=== PATIENT | female | born 1955 | race Caucasian/White ===

== ENCOUNTER 2017-09-19 16:20 | Emergency (ER) | payer OTHER, BC ==
[2017-09-19 16:26] VITALS: BMI 38.7
[2017-09-19 16:27] VITALS: RESP 18; TEMP 98
[2017-09-19] MEDS ORDERED: Tdap Vaccine 0.5 ml Vial (10-64 yrs) IM ONE ×2 (16:31→16:40)
--- NOTE | 2017-09-19 16:47 | C.PDOC ---
History Of Present Illness 61 year old female presents to the ED complaining of insect bite to the right lower abdomen from 3 days ago. Patient complains of redness, swelling, itching, and pain to palpation. She denies any fever, chills, or any other associated symptoms. She was prompted to visit the ER because she is diabetic and became concerned. Time Seen by Provider: 09/19/17 16:30 Chief Complaint (Nursing): Abnormal Skin Integrity History Per: Patient History/Exam Limitations: no limitations Onset/Duration Of Symptoms: Days Current Symptoms Are (Timing): Still Present Location Of Injury: Right: Abdomen (insect bite ) Quality Of Symptoms: Painful, Itching, Swollen - Animal Bite Description Of The Attack: Unprovoked Attack Description Of The Animal: Unknown Past Medical History Reviewed: Historical Data, Nursing Documentation, Vital Signs Vital Signs: Last Vital Signs Temp 98.0 F 09/19/17 16:26 Pulse 73 09/19/17 17:01 Resp 18 09/19/17 17:01 BP 151/89 H 09/19/17 17:01 Pulse Ox 100 09/19/17 18:28 - Medical History PMH: Diabetes, Gastritis, GERD, HTN, Hypercholesterolemia Surgical History: Endoscopy - [facility] Procedures D & C NEC (09/26/13) ENDO EXCISION/DEST OF LESION OR TISSUE OF STOMACH (01/23/14) ESOPHAGOGASTRODUODENOSCOPY [EGD] W/CLOSED BIOPSY (01/23/14) HYSTEROSCOPY (11/22/12) UTERINE LES DESTRUCT NEC (11/22/12) Family History: States: No Known Family Hx - Social History Hx Alcohol Use: No Hx Substance Use: No Review Of Systems Constitutional: Negative for: Fever, Chills Skin: Positive for: Other (insect bite to right lower abdomen ) Physical Exam - Physical Exam Appears: Non-toxic, No Acute Distress Skin: Dry, Other (Central insect wound to right lower abdomen, 4cm surrounding area of erythema with tenderenss, induration and warmth ) Head: Atraumatic Eye(s): bilateral: Normal Inspection Nose: Normal Oral Mucosa: Moist Neck: Normal ROM, Supple Chest: Symmetrical Neurological/Psych: Oriented x3, Normal Speech Gait: Steady ED Course And Treatment O2 Sat by Pulse Oximetry: 100 (RA) Pulse Ox Interpretation: Normal Medical Decision Making Medical Decision Making: Impression: Insect Bite infected Orders: - Tetanus vaccination - Keflex 500mg PO Patient assessed and examined. Tetanus vaccination administered by RN. On reassessment, patient reports feeling better. Patient given Rx for Cephalexin. Patient instructed to apply warm compresses to area and take antibiotic twice daily. Patient instructed to follow up with PMD. Disposition Counseled Patient/Family Regarding: Diagnosis, Need For Followup, Rx Given - Disposition Referrals: Olegario Gannon MD [Staff Provider] - Disposition: HOME/ ROUTINE Disposition Time: 16:45 Condition: STABLE Additional Instructions: Apply warm compresses to area Take antibiotic twice daily Follow up with your primary doctor Prescriptions: Cephalexin [cephalexin] 500 mg PO Q12 #14 cap Instructions: Insect Bites and Stings (DC) Forms: [employer] (Lithuanian) - POA Present On Arrival: None - Clinical Impression Clinical Impression: Infected insect bite of abdominal wall - PA / SYSTEMS ADMIN / Resident Statement MD/DO has reviewed & agrees with the documentation as recorded. - Scribe Statement The provider has reviewed the documentation as recorded by the Scribe Lorna Esparza All medical record entries made by the Scribe were at my direction and personally dictated by me. I have reviewed the chart and agree that the record accurately reflects my personal performance of the history, physical exam, medical decision making, and the department course for this patient. I have also personally directed, reviewed, and agree with the discharge instructions and disposition.
[2017-09-19 17:07] VITALS: BP 151/89; PULSE 73
[2017-09-19 18:17] VITALS: O2SAT 100
== END 2017-09-19 17:03 | disposition home or self-care (01) ==
LOC: C.ER 16:20
DX: S30.861A Insect bite (nonvenomous) of abdominal wall, initial encounter (principal); L08.9 Local infection of the skin and subcutaneous tissue, unspecified; W57.XXXA Bitten or stung by nonvenomous insect and other nonvenomous arthropods, initial encounter

== ENCOUNTER 2018-03-02 08:12 | Outpatient (CLI) | payer OTHER | END 2018-03-02 08:13 | disposition home or self-care (01) | LOC: C.SPRAD 08:12 ==